=== PATIENT | female | born 1955 | race Caucasian/White ===

== ENCOUNTER 2016-07-24 14:17 | Observation (INO) ==
[2016-07-24 14:54] LABS: Basophils # 0.1 K/mcL (0.0-0.2); Basophils % 0.4 %; Eosinophils # 0.2 K/mcL (0.0-0.6); Eosinophils % 1.5 %; Hematocrit 40.4 % (35.3-44.9); Hemoglobin 13.3 g/dL (11.5-15.4); Immature Granulocytes % 0.5 % (0-4); Lymphocytes % 15.2 %; Mean Corpuscular HGB Conc 32.9 g/dL (31.6-35.5); Mean Corpuscular Hemoglobin 30.6 pg (28.0-33.3); Mean Corpuscular Volume 93.1 fL (83.0-100.0); Mean Platelet Volume 9.7 fL (9.4-12.4); Monocytes # 0.6 K/mcL (0.0-1.3); Monocytes % 4.7 %; Platelet Count 315 K/mcL (140-400); Red Blood Count 4.34 M/mcL (3.82-4.97); Red Cell Distribution Width 13.2 % (11.5-14.5); Segmented Neutrophils % 77.7 %
[2016-07-24] MEDS ORDERED: *HR* HYDROmorphone (PF) 1 MG/ML SYRINGE IVP ONE (15:03)
[2016-07-24] MEDS ORDERED: Ondansetron 4 MG/2 ML VIAL IVP ONE (15:03)
[2016-07-24] MEDS ORDERED: 0.9 % Sodium Chloride 1,000 ML IVC ONE (15:05)
--- NOTE | 2016-07-24 15:07 | Emergency Department Note ---
START Narrative - START START: I examined this patient and my medical decision-making was reviewed with the LEAK HUNTER/PA/Advanced Practice Nurse/Resident Physician. I agree with the documented findings, disposition and treatment plan as described except to the extent set forth below. ED attending note: Patient seen with emergency medicine resident Dr. Banks. Please see a copy of his note for details of the H&P, evaluation, management and disposition of this patient. We independently had [id number] contact with the patient Briefly: A 61-year-old female woke up at 4 AM with intense right lower quadrant pain she has guarding but no rebound. Concerns for appendicitis or moderate. Labs and abdominopelvic CT are pending. Patient getting IV fluids and parenteral narcotics. Disposition pending. Patient stable.
[2016-07-24 15:12] LABS: Alanine Aminotransferase 12 Units/L (0-55); Albumin 4.1 g/dL (3.5-5.0); Albumin/Globulin Ratio 1.2 (1.1-2.2); Alkaline Phosphatase 76 Units/L (38-126); Amylase 34 Units/L (25-125); Aspartate Amino Transferase 14 Units/L (5-34); BUN/Creatinine Ratio 15 (6-26); Bilirubin,Direct 0.1 mg/dL (0.0-0.5); Bilirubin,Indirect 0.1 mg/dL (0.0-1.2); Bilirubin,Total 0.2 mg/dL (0.2-1.2); Blood Urea Nitrogen 11 mg/dL (7-20); Calcium 9.8 mg/dL (8.6-10.8); Carbon Dioxide 25 mEq/L (19-29); Chloride 104 mEq/L (98-109); Globulin 3.4 g/dL (2.4-3.5); Glucose 95 mg/dL (70-99); Lipase 16 Units/L (8-78); Osmolality,Calculated 289 (280-300); Potassium 3.4 mEq/L (3.5-4.5); Sodium 140 mEq/L (136-145); Total Protein 7.5 g/dL (6.0-8.3); eGFR For African Americans > 60 (> 60); eGFR For Non-African Americans > 60 (> 60)
--- NOTE | 2016-07-24 16:28 | Emergency Department Note ---
Disposition Clinical Impression: Acute appendicitis Qualifiers: Acute appendicitis type: unspecified acute appendicitis type Qualified Code(s) : K35.80 - Unspecified acute appendicitis Disposition: Admitted As Inpatient Condition: Good Time of Disposition: 17:11 Abdominal Pain HPI - General Chief Complaint: ED Abdominal Pain Stated Complaint: ABD PAIN Source: patient, other Mode of arrival: ambulatory Limitations: no limitations Nursing Notes Reviewed: Yes Vital Signs Reviewed: Yes - History of Present Illness HPI Narrative: Patient is a 61-year-old female who presents to [facility] ED with a chief complaint of abdominal pain. States this started in the periumbilical region when she woke up this morning. It then progressed to her right lower quadrant. Denies any nausea, vomiting, fever or chills. She did have a little bit of crackers with peanut butter which she did keep down. No problems with urination or bowel movements. No other medical problems. Pt Subjective Complaint: abdominal pain Onset (ago): hour(s) Consistency: constant Location: periumbilical, RLQ Pain Severity: moderate Pain Scale: 8 Quality: aching Radiation: none Migration to: RLQ Improves with: nothing Worsens with: nothing Associated symptoms: Denies: nausea, vomiting, diarrhea, fever, chills, dysuria Treatments prior to arrival: none - Related Data Home Medications Medication Instructions Recorded Confirmed Acetaminophen/Diphenhydramine 1 each PO HS PRN 07/24/16 07/24/16 [Acetaminophen Pm Caplet] Aspirin 81 mg PO DAILY 07/24/16 07/24/16 Magnesium 250 mg PO DAILY 07/24/16 07/24/16 Multivitamin [Multi-Day Vitamins] 1 each PO DAILY 07/24/16 07/24/16 [place]-3/Dha/Epa/Fish Oil [Fish Oil 1,000 mg PO DAILY 07/24/16 07/24/16 1,000 mg Softgel] Tumeric 1 each PO DAILY 07/24/16 07/24/16 Allergies Allergy/AdvReac Type Severity Reaction Status Date / Time No Known Allergies Allergy Verified 07/24/16 14:19 All systems ED: reviewed and negative except as stated. Abdominal Pain PMH - Past Medical History Medical history: Reports: diabetes Psychiatric history: Reports: no psych history - Social History Smoking status: Never smoker Alcohol use: Reports: none Drug use: Reports: none Physical Exam - General Limitations: no limitations General appearance: alert, in no apparent distress - Head Head exam: atraumatic, normocephalic, normal inspection - Eye Eye exam: Present: normal appearance, PERRL, EOMI - ENT ENT exam: normal exam, normal oropharynx, mucous membranes moist - Neck Neck exam: Present: normal inspection, full ROM, trachea midline - Chest Chest inspection: Present: normal inspection, symmetric chest wall rise - Respiratory Respiratory exam: Present: normal lung sounds bilaterally - Cardiovascular Cardiovascular exam: Present: regular rate, normal rhythm, normal heart sounds - Abdominal Exam Abdominal exam: Present: soft, tenderness. Absent: distention, guarding, rebound, rigidity Abdominal tenderness: Present: RLQ, severe - Extremities Exam Extremities exam: Present: normal inspection, full ROM. Absent: tenderness, pedal edema - Back Exam Back exam: Present: normal inspection, full ROM. Absent: tenderness - Neurological Exam Neurological exam: Present: alert, oriented X3 - Psychiatric Psychiatric exam: Present: normal affect, normal mood - Skin Skin exam: Present: warm, dry, intact, normal color Course Course Narrative: Patient seen and examined. Right lower quadrant abdominal pain. Concern for acute appendicitis. Labs, CT abdomen and pelvis ordered. We will give a dose of IV pain medication. - Reevaluation(s) Reevaluation #1: Mild leukocytosis with shift. CT abdomen and pelvis shows appendicitis that is uncomplicated. I spoke with Dr. Hernandez who will take her to the OR for surgery. Time: 17:11 Vital Signs Temperature 97.8 F 07/24/16 14:19 Pulse Rate 91 07/24/16 14:19 Respiratory Rate 18 07/24/16 14:19 Blood Pressure 153/82 07/24/16 14:19 O2 Sat by Pulse Oximetry 99 07/24/16 14:19 Temperature 97.8 F 07/24/16 14:19 Pulse Rate 91 07/24/16 17:36 Respiratory Rate 16 07/24/16 17:59 Blood Pressure 127/82 07/24/16 17:59 O2 Sat by Pulse Oximetry 97 07/24/16 17:36 Oxygen Delivery Oxygen Delivery Room Air Abdominal Pain - Medical Records Medical records reviewed: Yes I reviewed the patient's medical records. - Lab Data Lab results reviewed: Yes I reviewed the patient's lab results. Result diagrams: 07/24/16 14:34 07/24/16 14:34 Lab Results 07/24/16 07/24/16 07/24/16 Range/Units 14:26 14:34 14:34 WBC 12.9 H (4.3-11.1) K/mcL RBC 4.34 (3.82-4.97) M/mcL Hgb 13.3 (11.5-15.4) g/dL Hct 40.4 (35.3-44.9) % MCV 93.1 (83.0-100.0) fL MCH 30.6 (28.0-33.3) pg MCHC 32.9 (31.6-35.5) g/dL RDW 13.2 (11.5-14.5) % Plt Count 315 (140-400) K/mcL MPV 9.7 (9.4-12.4) fL Immature Gran % 0.5 (0-4) % Seg Neutrophils % 77.7 % Lymphocytes % 15.2 % Monocytes % 4.7 % Eosinophils % 1.5 % Basophils % 0.4 % Neutrophils # 10.0 H (1.6-8.9) K/mcL Lymphocytes # 2.0 (0.6-4.6) K/mcL Monocytes # 0.6 (0.0-1.3) K/mcL Eosinophils # 0.2 (0.0-0.6) K/mcL Basophils # 0.1 (0.0-0.2) K/mcL Sodium 140 (136-145) mEq/L Potassium 3.4 L (3.5-4.5) mEq/L Chloride 104 (98-109) mEq/L Carbon Dioxide 25 (19-29) mEq/L BUN 11 (7-20) mg/dL Creatinine 0.74 (0.57-1.11) mg/dL Est GFR ( Amer) > 60 (> 60) Est GFR (Non-Af Amer) > 60 (> 60) BUN/Creatinine Ratio 15 (6-26) Glucose 95 (70-99) mg/dL Calculated Osmolality 289 (280-300) Calcium 9.8 (8.6-10.8) mg/dL Total Bilirubin 0.2 (0.2-1.2) mg/dL Direct Bilirubin 0.1 (0.0-0.5) mg/dL Indirect Bilirubin 0.1 (0.0-1.2) mg/dL AST 14 (5-34) Units/L ALT 12 (0-55) Units/L Alkaline Phosphatase 76 (38-126) Units/L Serum Total Protein 7.5 (6.0-8.3) g/dL Albumin 4.1 (3.5-5.0) g/dL Globulin 3.4 (2.4-3.5) g/dL Albumin/Globulin Ratio 1.2 (1.1-2.2) Amylase 34 (25-125) Units/L Lipase 16 (8-78) Units/L Urine Color Yellow (Yellow) Urine Clarity Clear (Clear) Urine pH 7.0 (5.0-8.0) pH Units Ur Specific [place] 1.020 (1.010-1.025) Urine Protein Negative (Neg-Trace) mg/dL Urine Glucose (UA) Normal (Normal) mg/dL Urine Ketones Negative (Negative) mg/dL Urine Blood Trace-intact H (Negative) Urine Nitrite Negative (Negative) Urine Bilirubin Negative (Negative) Urine Urobilinogen Normal (Normal) mg/dL Ur Leukocyte Esterase Trace H (Negative) Urine Microscopic RBC 0-3 (0-3) per hpf Urine Microscopic WBC 3-5 H (0-3) per hpf Ur Squamous Epith Cells Many H (None-Few) per lpf Urine Bacteria Few (None-Few) per hpf Hyaline Casts None Seen (None-Few) per lpf Ur Culture Indicated? YES A (NO) - Radiology Data Radiology results reviewed: Yes I reviewed the patient's radiology results.
[2016-07-24 17:32] LABS: Bilirubin,Urine Negative (Negative); Blood,Urine Trace-intact (Negative); Clarity,Urine Clear (Clear); Color,Urine Yellow (Yellow); Glucose,Urine (UA) Normal (Normal); Ketones,Urine Negative (Negative); Leukocyte Esterase,Urine Trace (Negative); Nitrite,Urine Negative (Negative); Protein,Urine Negative (Neg-Trace); Urobilinogen,Urine Normal (Normal)
[2016-07-24 17:35] LABS: Bacteria,Urine Few per hpf (None-Few); Hyaline Casts,Urine None Seen per lpf (None-Few); RBC,Urine 0-3 per hpf (0-3); Squamous Epithelial Cell,Urine Many per lpf (None-Few)
[2016-07-24] MEDS ORDERED: *HR* FentaNYL (PF) 100 MCG/2 ML VIAL ONE (17:53)
[2016-07-24] MEDS ORDERED: *HR* Propofol 200 MG/20 ML VIAL IVP ONE (17:53)
[2016-07-24] MEDS ORDERED: *HR* Midazolam HCl 2 MG/2 ML VIAL ONE (17:53)
--- NOTE | 2016-07-24 17:53 | General Surg History&Physical ---
Date of Encounter: 07/24/16 Time of Encounter: 17:40 Assessment and Plan (1) Acute appendicitis with localized peritonitis Current Visit: Yes Status: Acute The assessment and plan as outlined above was discussed with the patient and/or family members who expressed understanding and agreement. All questions were answered. I personally reviewed the CAT scan. Patient has acute appendicitis. She has mild leukocytosis. I have recommended laparoscopic appendectomy. I discussed the risks and benefits with the patient and she wishes to proceed on an urgent basis. History of Present Illness Chief complaint: Right lower quadrant abdominal pain HPI: Ms. Phillips is a 61 year old female Cooled this morning with central abdominal pain and nausea. Throughout the day the pain migrated from the central abdomen to the right lower quadrant. As the pain migrated to the right lower quadrant she developed pain with walking and pain with motion. She is anorexic. She is afebrile. She sought evaluation in the emergency department. CAT scan demonstrated acute appendicitis. She now presents for treatment of acute appendicitis. Past Med Surg Social Fam HX - Past Medical History Medical history: diabetes Psychiatric history: no psych history - Social History Smoking Status: Never smoker Smokeless Tobacco Status: No Alcohol use: none Drug use: none Medications and Allergies Allergies No Known Allergies Allergy (Verified 07/24/16 14:19) Review of Systems All systems PM: reviewed and no additional remarkable complaints except as stated (The patient specifically denies infectious disorders such as HIV, hepatitis, tuberculosis) All systems PM: A 10-system review of systems was performed and is negative for pertinent findings except as documented above in the HPI. General Surgery Exam Initial Vital Signs Temp Pulse Resp BP Pulse Ox 97.8 F 91 18 153/82 99 07/24/16 14:19 07/24/16 14:19 07/24/16 14:19 07/24/16 14:19 07/24/16 14:19 - General physical appearance well developed, well nourished, no distress - Neck no masses, no bruits, trachea midline, no lymphadectomy, no venous distension - Respiratory normal expansion, normal respiratory effort, clear to percussion, clear to auscultation - Cardiovascular Cardiovascular exam: Present: RRR, 15, 16 - Abdomen Abdomen general surgery: Present: tender Abdominal Tenderness: Present: RLQ (Guarding and rebound tenderness over McBurney's point) - Neurologic Present: CN 2-12 grossly intact, normal coordination, normal sensation - Psychiatric Psychiatric general surgery: Present: appropriate, oriented to person, oriented to place, oriented to time, speech is normal, memory intact Results - Labs 07/24/16 14:34 07/24/16 14:34 Abnormal lab results WBC 12.9 K/mcL (4.3-11.1) H 07/24/16 14:34 Neutrophils # 10.0 K/mcL (1.6-8.9) H 07/24/16 14:34 Potassium 3.4 mEq/L (3.5-4.5) L 07/24/16 14:34 Urine Blood Trace-intact (Negative) H 07/24/16 14:26 Ur Leukocyte Esterase Trace (Negative) H 07/24/16 14:26 Urine Microscopic WBC 3-5 per hpf (0-3) H 07/24/16 14:26 Ur Squamous Epith Cells Many per lpf (None-Few) H 07/24/16 14:26 Ur Culture Indicated? YES (NO) A 07/24/16 14:26 Diabetes panel 07/24/16 Range/Units 14:34 Sodium 140 (136-145) mEq/L Potassium 3.4 L (3.5-4.5) mEq/L Chloride 104 (98-109) mEq/L Carbon Dioxide 25 (19-29) mEq/L BUN 11 (7-20) mg/dL Creatinine 0.74 (0.57-1.11) mg/dL Glucose 95 (70-99) mg/dL Calcium 9.8 (8.6-10.8) mg/dL AST 14 (5-34) Units/L ALT 12 (0-55) Units/L Alkaline Phosphatase 76 (38-126) Units/L Albumin 4.1 (3.5-5.0) g/dL Calcium panel 07/24/16 Range/Units 14:34 Calcium 9.8 (8.6-10.8) mg/dL Albumin 4.1 (3.5-5.0) g/dL Pituitary panel 07/24/16 Range/Units 14:34 Sodium 140 (136-145) mEq/L Potassium 3.4 L (3.5-4.5) mEq/L Chloride 104 (98-109) mEq/L Carbon Dioxide 25 (19-29) mEq/L BUN 11 (7-20) mg/dL Creatinine 0.74 (0.57-1.11) mg/dL Glucose 95 (70-99) mg/dL Calcium 9.8 (8.6-10.8) mg/dL Adrenal panel 07/24/16 Range/Units 14:34 Sodium 140 (136-145) mEq/L Potassium 3.4 L (3.5-4.5) mEq/L Chloride 104 (98-109) mEq/L Carbon Dioxide 25 (19-29) mEq/L BUN 11 (7-20) mg/dL Creatinine 0.74 (0.57-1.11) mg/dL Glucose 95 (70-99) mg/dL Calcium 9.8 (8.6-10.8) mg/dL Total Bilirubin 0.2 (0.2-1.2) mg/dL AST 14 (5-34) Units/L ALT 12 (0-55) Units/L Alkaline Phosphatase 76 (38-126) Units/L Albumin 4.1 (3.5-5.0) g/dL All other labs normal. - Imaging CT scan - abdomen: image reviewed (I personally reviewed the CAT scan. Findings are consistent with nonperforated acute appendicitis.)
[2016-07-24] MEDS ORDERED: Lidocaine -MPF 2% 2 ML VIAL ONE (17:54)
[2016-07-24] MEDS ORDERED: *HR* Rocuronium Bromide 50 MG/5 ML VIAL ONE (17:54)
[2016-07-24] MEDS ORDERED: Lidocaine -MPF 4% 5 ML AMPUL ONE (18:01)
[2016-07-24] MEDS ORDERED: CefOXitin 1,000 MG VIAL ONE (18:11)
--- NOTE | 2016-07-24 18:13 | Anesthesia Evaluation PreOp ---
Date of Encounter: 07/24/16 Time of Encounter: 18:11 - Past History Planned Operation: Lap Appy Cardiac History: Arrhythmia (AFib/SVT s/p cardiac ablation approx 2001) Pulmonary History: Former smoker (quit 06/2012) DIRECTOR INSURANCE History: Denies Any Significant HX Other Medical History: Denies Any Significant HX Anesthesia History: No Prior Anesthetic Complications, Past Anesthesia (cardiac ablation), MH (NO FamHx of MH) Alcohol Use: none Drug use: none Medications and Allergies Acetaminophen/Diphenhydramine [Acetaminophen Pm Caplet] 1 each PO HS PRN [History] Aspirin 81 mg PO DAILY 07/24/16 [History] Magnesium 250 mg PO DAILY 07/24/16 [History] Multivitamin [Multi-Day Vitamins] 1 each PO DAILY 07/24/16 [History] [place]-3/Dha/Epa/Fish Oil [Fish Oil 1,000 mg Softgel] 1,000 mg PO DAILY 07/24/16 [History] Tumeric 1 each PO DAILY 07/24/16 [History] Allergies No Known Allergies Allergy (Verified 07/24/16 14:19) - Meds/Allergy Pre-op Review Medications Reviewed: Yes Allergies Reviewed: Yes Beta Blockers on Current Med List: No Anesthesia Results - Labs 07/24/16 14:34 07/24/16 14:34 Laboratory Tests 07/24/16 14:34 Est GFR (Non-Af Amer) > 60 Laboratory Results Impressions Abdomen/Pelvis CT 07/24/16 15:57 IMPRESSION: Acute uncomplicated appendicitis. The appendix is mildly dilated at 10 mm with periappendiceal inflammatory changes. No periappendiceal abscess, free air or free fluid. Otherwise unremarkable CT of the abdomen and pelvis. D/ / 07/24/2016 17:11:15 Juan Francisco Calle MD / francisco Interpreting Provider: Juan Francisco Calle MD - Imaging EKG: image reviewed Anesthesia Exam Vital Signs Temp Pulse Resp BP Pulse Ox 07/24/16 17:59 16 127/82 07/24/16 17:36 91 16 117/63 97 07/24/16 15:53 78 113/86 07/24/16 14:19 97.8 F 91 18 153/82 99 Intake and Output Patient Weight - HEENT Pupil (Motor): Pupils equal, EOMI Mallampati: II Teeth: Normal Oral Opening: Greater than 3 - DIRECTOR INSURANCE LOC: Oriented DIRECTOR INSURANCE Motor: Normal RUE, Normal LUE, Normal RLE, Normal LLE, Normal Face - Cardiac Rhythm: Regular Murmur: None - Pulmonary Breath Sounds: bilateral Clear Respiratory Effort: Symmetrical Anesthesia Assess/Plan ASA Score: 2 (Diabetes), E Modified Ten[place] Scale for Level of Consciousness: Cooperative, oriented, and tranquil Anesthetic Plan: General Monitoring Plan: Standard Monitors Recovery Plan: PACU Anes Supervising Prov Stmt: Pt seen/evaluated, R&B discussed, questions answered and consent obtained. Robbin Mcbride MD
[2016-07-24] MEDS ORDERED: Acetaminophen IV 1,000 MG/100 ML INFUS..BTL ONE (18:27)
[2016-07-24] MEDS ORDERED: EPHEDrine 50 MG/ML VIAL ONE (18:53)
[2016-07-24] MEDS ORDERED: Ondansetron 4 MG/2 ML VIAL ONE (19:05)
[2016-07-24] MEDS ORDERED: Dexamethasone 4 MG/ML VIAL ONE (19:05)
[2016-07-24] MEDS ORDERED: *HR* HYDROmorphone (PF) 1 MG/ML SYRINGE IVP PRN ×2 (19:14→20:38)
[2016-07-24] MEDS ORDERED: *HR* Promethazine 25 MG/ML VIAL IVP PRN (19:14)
[2016-07-24] MEDS ORDERED: *HR* HYDROmorphone 2 MG/ML SYRINGE ONE (19:24)
--- NOTE | 2016-07-24 19:39 | Operative Note ---
Date of procedure: 07/24/16 Pre-op diagnosis: Acute appendicitis Post-op diagnosis: same Procedure: Laparoscopic appendectomy Anesthesia: ALPESH Surgeon: Deny Hernandez Estimated blood loss (cc): 10 Specimen: Appendix Condition: stable Disposition: PACU Procedure in Detail: After informed consent the patient was taken to the major operative suite and placed in supine position and given adequate general anesthetic. The abdomen was prepped and draped in sterile fashion utilizing ChloraPrep standard draping techniques and timeout taken patient was identified. A vertical midline incision was made below the umbilicus. I dissected down the level of the fascia. 2 traction stitches of 0 Vicryl were placed. The abdomen was entered visually. A Mcgowan trocar is placed in the abdomen and the abdomen was insufflated to 15 mmHg pressure CO2. The appendix was dilated distally and had visible pus on the surface of the appendix but no or else in the abdomen. A 5 mm trocar was placed in the suprapubic area and a 12 mm trochars placed in the right upper quadrant. The appendix was grasped and elevated. The window between the mesial appendix and base of the cecum was opened with a [place] forcep dissection. The base the appendix was divided with a gastrointestinal load on the laparoscopic stapler. The mesoappendix was divided with a vascular load on the laparoscopic stapler. Bleeding was minimal. The appendix was removed and the specimen bag. The Mcgowan trocar was replaced and the abdomen was irrigated with copious amounts of antibiotic containing solution. All staple lines were intact there was no evidence of bleeding or leak. Photographic documentation was taken. The fascia was closed with 0 Vicryl and the skin with 20 4:00 she tolerated the procedure very well. Transferred to recovery in stable condition
--- NOTE | 2016-07-24 20:28 | Anesthesia Evaluation Post Op ---
Date of Encounter: 07/24/16 Time of Encounter: 20:30 - Vital Signs Vital Signs: Vital Signs/O2 Sat/Glucose, Most Current Temp Pulse Resp BP Pulse Ox 07/24/16 20:22 83 20 108/57 93 L 07/24/16 20:12 91 20 108/62 93 L 07/24/16 20:02 87 20 115/64 93 L 07/24/16 19:52 98.0 F 100 24 125/65 95 07/24/16 17:59 16 127/82 07/24/16 17:36 91 16 117/63 97 - Lungs Lungs: Clear Ascult./Percussion - Airway Airway: Non-obstructed - Cardiovascular Regular Rate - Mental Status Mental Status: Alert & Oriented, Answers Appropriately - Pain Pain Scale: 0 - Nausea Vomiting Nausea Vomiting: Not Present - Hydration Hydration: NPO - Discharge PostOp Status: Transfer Patient to floor
[2016-07-24] MEDS ORDERED: 0.9 % Sodium Chloride 1,000 ML IVC SCH (20:38)
[2016-07-24] MEDS ORDERED: Ondansetron 4 MG/2 ML VIAL IVP PRN (20:38)
[2016-07-25] MEDS: *HR* OxyCODONE/APAP 5/325 TABLET PO PRN ×3 (00:21→11:26)
[2016-07-25] MEDS ORDERED: cefOXitin 2,000 MG in D5% in Water (Mini-Bag+) 100 ML IVPB SCH ×2 (03:00)
[2016-07-25 07:03] VITALS: BP 106/97
--- NOTE | 2016-07-25 09:23 | Discharge Summary ---
<Brian Malave - Last Filed: 07/25/16 09:59> Date of Encounter: 07/25/16 Time of Encounter: 07:00 - Discharge Diagnosis (1) Acute appendicitis with localized peritonitis Priority: Primary Status: Resolved - Discharge Medications Prescriptions: OxyCODONE/APAP 5/325 [Percocet 5/325 MG] 1 each PO Q4HR PRN #30 tablet PRN Reason: Pain Docusate [Colace] 100 mg PO BID #30 capsule Home Medications: Acetaminophen/Diphenhydramine [Acetaminophen Pm Caplet] 1 each PO HS PRN [History] Aspirin 81 mg PO DAILY 07/24/16 [History] Magnesium 250 mg PO DAILY 07/24/16 [History] Multivitamin [Multi-Day Vitamins] 1 each PO DAILY 07/24/16 [History] [place]-3/Dha/Epa/Fish Oil [Fish Oil 1,000 mg Softgel] 1,000 mg PO DAILY 07/24/16 [History] Tumeric 1 each PO DAILY 07/24/16 [History] Docusate [Colace] 100 mg PO BID #30 capsule 07/25/16 [Rx] OxyCODONE/APAP 5/325 [Percocet 5/325 MG] 1 each PO Q4HR PRN #30 tablet 07/25/16 [Rx] Allergies/Adverse Reactions: Allergies No Known Allergies Allergy (Verified 07/24/16 14:19) General Surgery Exam Initial Vital Signs Temp Pulse Resp BP Pulse Ox 97.8 F 91 18 153/82 99 07/24/16 14:19 07/24/16 14:19 07/24/16 14:19 07/24/16 14:19 07/24/16 14:19 - General physical appearance well developed, well nourished, no distress - Eyes normal ocular movement - ENT normal mucosa - Neck trachea midline - Respiratory normal respiratory effort, clear to auscultation - Cardiovascular Cardiovascular exam: Present: RRR - Abdomen Abdomen general surgery: Present: bowel sounds present, soft, tender (Expected post surgical tenderness) - Incision Incision: Present: clean and dry, intact - Integumentary Integumentary general surgery: Present: warm and dry - Neurologic Present: CN 2-12 grossly intact - Musculoskeletal Present: normal posture - Psychiatric Psychiatric general surgery: Present: appropriate, oriented to person, oriented to place, oriented to time, speech is normal, memory intact Date of admission: 07/24/16 18:14 Primary care physician: PCP NO Discharging clinician: Deny Hernandez Anticipated date of discharge: 07/25/16 - Patient Status Disposition: Home, Self-Care Condition: Good Functional capacity at discharge: independent ambulation Overall status at discharge: patient is progressing back to baseline - Discharge Instructions Follow Up With: Izzy Ramsay HEEL VARNISHER [Advanced Practice Nurse] - 08/11/16 8:30 am Additional Instructions: #1 may shower starting today, no tub bath for 2 weeks #2 wash incisions with soap and water and pat dry daily #3 no lifting, pushing, pulling more than 15 pounds for the next 2 weeks #4 no driving until off narcotics for 24 hours and able to safely react in the car #5 may climb stairs - Diet and Activity Activity: increase activity as tolerated Diet: advance to your usual diet - Hospital Course Hospital course: Ms. Phillips is a 61 year old female who presented to the emergency department yesterday evening with complaints of central abdominal pain and nausea. The pain began centrally in the abdomen and progressed to the right lower quadrant. As the pain progressed she began having pain with movement including walking and motion. She was anorexic and afebrile. She had a CT scan, which demonstrated acute appendicitis and underwent laparscopic appendectomy yesterday evening. This morning she is doing well and not experiencing any nausea with her breakfast. - Time Spent with Patient Total time spent providing and/or coordinating discharge services: Less than 30 minutes - Attending Attestation I examined this patient and my medical decision-making was reviewed with the DEHYDRATION UNIT OPERATOR/PA/Advanced Practice Nurse/Resident Physician. I agree with the documented findings, disposition and treatment plan as described except to the extent set forth below. <Deny Hernandez - Last Filed: 07/25/16 13:04> - Discharge Diagnosis (1) Acute appendicitis with localized peritonitis Status: Resolved General Surgery Exam Initial Vital Signs Temp Pulse Resp BP Pulse Ox 97.8 F 91 18 153/82 99 07/24/16 14:19 07/24/16 14:19 07/24/16 14:19 07/24/16 14:19 07/24/16 14:19 Date of admission: 02/16/17 18:14 Primary care physician: PCP NO - Hospital Course Hospital course: Ms. Phillips is a 61 year old female - Time Spent with Patient Total time spent providing and/or coordinating discharge services: - Attending Attestation The patient is seen and evaluated with resident on morning rounds today. She is doing quite well after laparoscopic appendectomy. She was a class II wound and should do well after 2 doses of postoperative antibiotics. We will plan on discharge home today on regular diet. She will be seen in the surgery office in next 1-2 weeks. We discussed limiting her lifting to under 20 pounds until seen in the office. Deny Hernandez MD FACS
== END 2016-07-25 11:39 | disposition home or self-care (01) ==
LOC: EMEROO 14:17 → 3ANU 14:17
PROVIDERS: ADMIT Surgery; ATTEND Surgery